=== PATIENT | female | born 1940 | race Two or more races ===

== ENCOUNTER 2016-10-05 10:33 | Day surgery (SDC) | payer MEDICARE, OTHER ==
[~2016-10-05 10:33] MED LIST: ACETAMINOPHEN TAB 500 MG TAB PO ONE; DEXAMETHASONE SOD PHOSPHATE 10 MG/ML 1 ML VIAL IV ONE; DEXAMETHASONE SOD PHOSPHATE 4 MG/ML 1 ML VIAL IV ONE; FAMOTIDINE 20 MG/2 ML VIAL IV ONE; LACTATED RINGERS 1,000 ML IV SCH; LIDOCAINE 1% 20 ML VIAL (10MG/ML) FOR IV START INTRADERMA PRN; MIDAZOLAM 2 MG/2 ML VIAL IV PRN; MORPHINE SULFATE 2 MG/ML SYRINGE IV PRN; ONDANSETRON 4 MG/2 ML VIAL IVP ONE; ceFAZolin 2 GM in SODIUM CHLORIDE 0.9% 100 ML IVPB ONE
[2016-10-05] MEDS: OXYMETAZOLINE 0.05% NASL SPRAY 15 ML NASAL ONE ×5 (10:51→11:15)
[2016-10-05] MEDS ORDERED: NEOSTIGMINE 1 MG/ML 10 ML VIAL ONE (12:47)
[2016-10-05] MEDS ORDERED: SUCCINYLCHOLINE CHLORIDE VIAL 200 MG/10 ML VIAL IV ONE (12:47)
[2016-10-05] MEDS ORDERED: DEXAMETHASONE SOD PHOS (MDV) 100 MG/10 ML VIAL ONE (12:47)
[2016-10-05] MEDS ORDERED: ePHEDrine 50 MG/ML 1 ML AMP ONE (12:47)
[2016-10-05] MEDS ORDERED: MIDAZOLAM 2 MG/2 ML VIAL ONE (12:47)
[2016-10-05] MEDS ORDERED: PROPOFOL 10 MG/ML 20 ML VIAL IV ONE (12:47)
[2016-10-05] MEDS ORDERED: GLYCOPYRROLATE 0.2 MG/ML 2 ML VIAL ONE (12:47)
[2016-10-05] MEDS ORDERED: ROCURONIUM BROMIDE 10 MG/ML 10 ML VIAL IV ONE (12:47)
[2016-10-05] MEDS ORDERED: LIDOCAINE 1% INJ 10MG/ML (20 ML MDV) ONE (12:47)
[2016-10-05] MEDS ORDERED: CIPROFLOXACIN-DEXAMETH 0.3-0.1% DROPS 7.5 ML BTL BOTH EARS ONE (13:37)
[2016-10-05] MEDS ORDERED: LIDOCAINE 1%-EPI 1:100,000 20 ML VIAL SQ ONE (13:38)
[2016-10-05] MEDS ORDERED: OXYMETAZOLINE 0.05% NASL SPRAY 15 ML MISCELLANE ONE (13:46)
[2016-10-05] MEDS ORDERED: LACTATED RINGERS 1,000 ML IV ONE (14:39)
--- NOTE | 2016-10-05 14:59 | P.OP ---
Date of Procedure: 10/05/16 Preoperative Diagnosis: Bilateral chronic otitis media with effusion Eustachian tube dysfunction 4.6 cm left wrist a lesion 6 cm left upper arm lesion Tongue lesion Dysphasia Rule out nasopharyngeal lesion Postoperative Diagnosis: Same Procedure(s) Performed: Excision of a 4.6 x 2 cm left wrist lesion with bilateral advancement flap closure with a secondary defect measuring 9.2 x 4 cm Excision of a 6 x 2 cm left upper arm lesion with bilateral advancement flap closure and a secondary flap defect reconstruction measuring 12 x 4 cm Bilateral direct microscopic tympanostomy and tube placement Endoscopic evaluation the nasopharynx with biopsy Direct microscopic laryngoscopy with biopsy of the base the tongue i.e. vallecula Excision of a 1 1/2 cm anterior tongue lesion with primary closure Anesthesia: MIRLANDE Surgeon: Hossein Connolly Estimated Blood Loss (ml): 20 Pathology: other (Nasopharynx, tongue, two left arm lesions) Condition: stable Disposition: PACU Indications for Procedure: This patient presented to the office with hearing loss to large left arm lesions that are suspicious. Breathing through the nose etc. thorough examination revealed to suspicious left arm lesions bilateral middle ear effusion with a significant conductive hearing loss patient also was found to have a suspicious lesion of the base the tongue and a course the nasopharynx. Operative Findings: Patient had bilateral middle ear effusion strange lesion of the vallecula and nasopharynx and to lesions a left arm unable to perform the bronchoscopy and esophagoscopy because of the anatomy of the patient. Description of Procedure: This patient was taken to the operative room and placed in the supine position. A general inhalation anesthetic was administered the patient by mask and subsequently intubated with a cuffed endotracheal tube by the department of anesthesia with a functioning IV line in place. Patient was monitored throughout the entire case by the department of anesthesia. This is a difficult intubation per the anesthesiologist. Both ears were visualized with a 250 mm Leica microscope and cerumen and epithelial debris was removed from the external auditory canal. Tympanostomy incisions were made inferiorly and tubes were placed and fluid was suctioned. The left ear to went on easily the right side showed massive edema the middle ear space. 2 was placed nevertheless and drops were placed. Attention was then paid to the nose where a 0 scope was placed into the right nares and the entire nasopharynx was evaluated directly. The nasopharynx showed some irregular lymphoid tissue which was biopsied. The patient tolerated this well this was done with a 0 Watts duong scope. Attention was then paid to the left arm where there were 2 lesions present one of's of the left wrist the other one is a little left upper arm. Both lesions were measured the wrist lesion measured 4.6 x 2 cm the left upper arm lesion measured 6 x 2 cm both were anesthetized marked and excised with a 15 blade delicate plastic scissors and a Brown-Adson forceps. Adjacent advancement flaps were developed an H-type incision and close the defect. We elevated the flaps and rotated the flaps into position and close the defect with the use of a 4-0 Monocryl deeply and a 5-0 Prolene in a running nonlocking fashion. The secondary defect of the wrist lesion measured 9.2 x 4 cm the secondary defect of the left upper arm lesion measured 12 x 4 cm. Both of them underwent extensive undermining and an adjacent flap was developed for closure. A bilateral advancement flap was utilized. We did remove redundant tissue to prevent dogears. [place] triangles were removed. A tooth guard was then placed and a Jako laryngoscope was placed into the patient's mouth with care to avoid any trauma to the lips teeth gums and tongue ulcers open tongue was depressed and the entire Jonathan and hypopharynx was evaluated including the piriform sinus, aryepiglottic folds, true and false cords etc. placed on suspension on a Lewy magnified and there was an unusual vallecular lesion that was biopsied with biopsy forceps. No other lesions were noted. We were unable to enter the lungs were esophagus because of the anatomy of this patient's neck. We will do this at a later date. Attention was then paid to the tongue. The tongue was grasped and brought forward marked and anesthetized with lidocaine 1% with epinephrine 1 100,000. A V-type incision was performed of the anterior tip to remove this unusual anterior tip lesion. Hemostasis was obtained with use of electrocoagulation and we closed this lesion with use of a 4 rapid Vicryl in a running nonlocking fashion. Excellent approximation was obtained the patient tolerated this well and follow-up will be in the office in 1 week for recheck and the patient is to contact me if any problems should arise in the interim.
[2016-10-05] MEDS ORDERED: KETOROLAC 30 MG/ML 1 ML VIAL IVP ONE (16:08)
[2016-10-05] MEDS ORDERED: ACETAMINOPHEN TAB 325 MG TAB PO ONE (16:42)
== END 2016-10-05 15:45 | disposition home or self-care (01) ==
LOC: OR 10:33
PROVIDERS: ATTEND Otolaryngology
DX: C44.629 Squamous cell carcinoma of skin of left upper limb, including shoulder (principal); L57.8 Other skin changes due to chronic exposure to nonionizing radiation; K14.0 Glossitis; K13.29 Other disturbances of oral epithelium, including tongue; K13.5 Oral submucous fibrosis; L85.8 Other specified epidermal thickening; H65.493 Other chronic nonsuppurative otitis media, bilateral; H90.2 Conductive hearing loss, unspecified; H69.80 Other specified disorders of Eustachian tube, unspecified ear; I10 Essential (primary) hypertension; E07.9 Disorder of thyroid, unspecified; K21.9 Gastro-esophageal reflux disease without esophagitis; Z79.899 Other long term (current) drug therapy; Z88.6 Allergy status to analgesic agent; Z88.1 Allergy status to other antibiotic agents; Z88.5 Allergy status to narcotic agent; Z91.013 Allergy to seafood; Z88.7 Allergy status to serum and vaccine; Z88.8 Allergy status to other drugs, medicaments and biological substances; Z91.09 Other allergy status, other than to drugs and biological substances
CPT/HCPCS: 93005; 88305; 84132; 88312; 88342; 88341; 14301 ×2; 69436; 31535; 41599; J2250; J0330; J1100 ×2; J2710; J0690; J2405; J2001; J1885; J2704; 88364; 88365

== ENCOUNTER 2017-02-08 10:14 | Day surgery (SDC) | payer MEDICARE, OTHER ==
[2017-01-29 15:14] VITALS: BMI 30.6
[~2017-02-08 10:14] MED LIST changes: -ACETAMINOPHEN TAB 500 MG TAB PO ONE; +HYDROmorphone 1 MG/ML 1 ML SYRINGE IVP PRN; -MORPHINE SULFATE 2 MG/ML SYRINGE IV PRN; +OXYMETAZOLINE 0.05% NASL SPRAY 1 SPRAY BOTTLE NASAL ONE; +SCOPOLAMINE 1.5MG/72HR PATCH TRANSDERM ONE
[2017-02-08 14:23] LABS: Potassium 3.8 mmol/L (3.5-5.1)
[2017-02-08] MEDS ORDERED: LIDOCAINE 1% INJ 10MG/ML (20 ML MDV) ONE (14:52)
[2017-02-08] MEDS ORDERED: SUCCINYLCHOLINE CHLORIDE 100 MG/5 ML SYR IV ONE (14:52)
[2017-02-08] MEDS ORDERED: MIDAZOLAM 2 MG/2 ML VIAL ONE (14:52)
[2017-02-08] MEDS ORDERED: PROPOFOL 10 MG/ML 20 ML VIAL IV ONE (14:52)
[2017-02-08] MEDS ORDERED: fentaNYL (PF) 50 MCG/ML 2 ML AMP ONE (14:52)
[2017-02-08] MEDS ORDERED: ePHEDrine SULFATE/0.9% NACL/PF 50 MG/5 ML SYRINGE IV ONE (14:52)
[2017-02-08] MEDS ORDERED: CIPROFLOXACIN-DEXAMETH 0.3-0.1% DROPS 7.5 ML BTL BOTH EARS ONE (15:14)
[2017-02-08] MEDS ORDERED: BUPIVACAINE-EPI 0.5%-1:200,000 10 ML VIAL SQ ONE (15:15)
[2017-02-08] MEDS ORDERED: LIDOCAINE 2%-EPI 1:100,000 20 ML VIAL SQ ONE (15:16)
[2017-02-08] MEDS ORDERED: FLUORESCEIN STRIPS 1 MG STRIP MISCELLANE ONE (15:16)
[2017-02-08] MEDS ORDERED: EPINEPHrine 1 MG/ML (MDV) 30 ML VIAL IRRIGATION ONE (15:17)
--- NOTE | 2017-02-08 16:05 | P.OP ---
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 Chronic otitis media with effusion Eustachian tube dysfunction Hypertrophy of inferior turbinates Retained nonfunctioning tympanostomy tubes Postoperative Diagnosis: Same plus bilateral tympanic membranes perforations after old tube removal that were nonfunctioning Procedure(s) Performed: Bilateral direct microscopic tympanostomy and tube placement Bilateral direct tympanostomy and removal of nonfunctioning tubes Bilateral myringoplasty Endoscopic balloon eustachian tuboplasty Bilateral submucosal resection of the posterior inferior turbinate Implants: Anesthesia: GETA Surgeon: Hossein Connolly Estimated Blood Loss (ml): 5 Pathology: none sent Condition: stable Disposition: PACU Indications for Procedure: This patient has had chronic ear infections including chronic mastoiditis. In spite of our best efforts the infection has persisted and her tubes have become nonfunctioning. She's developed a middle ear effusion loss of hearing and would like to proceed forward with repeat tube placement along with removal of the old tubes and patching the tympanic membranes and this time we will be proceeding forward with a bilateral balloon eustachian tuboplasty. All risks, benefits, and alternative therapies were discussed in detail. Consent was obtained and all questions were answered. Operative Findings: Patient had a retracted tympanic membrane's bilaterally with retained nonfunctioning tubes. Middle ear effusion was seen after new tubes were placed and the old tubes were removed. We did patch the tympanic membranes perforations bilaterally after tube removal and eustachian tube orifices were very tight and they were ballooned open. Description of Procedure: This patient was taken to the operative room and placed in the supine position. A general inhalation anesthetic was administered to the patient by mask and subsequently intubated with a cuffed endotracheal tube by the department of anesthesia with a functioning IV line in place. The patient was monitored throughout the entire case by the department of anesthesia. Both ureters were visualized with a 250 mm Leica microscope and cerumen and epithelial debris was removed. Bilateral tympanostomies were performed under microscopic visualization surrounding the old tube in the old tubes were removed. We suction the fluid from the middle ear and then did a middle ear lavage. After the middle ear lavage was performed the edge of the perforation was prepped and a bio design graft was placed and a bilateral myringoplasty was performed. After the lavage was performed bilaterally and the myringoplasty was performed bilaterally after removal of nonfunctioning tubes, a tympanostomy incision was made more anteriorly and a ultraseal tube was placed on the right and a triune tube was placed on the left. Excellent results were obtained. Attention was then paid to the nose where the inferior turbinates were found to be compressing on the eustachian tube anteriorly. We injected this area with lidocaine 1% with epinephrine 1 100,000 and a 2 mm microdebrider was inserted into the inferior turbinate and a submucosal resection was performed posteriorly. After this was performed we then identified the eustachian tube by endoscopic visualization. An occluder balloon was placed into the eustachian tube orifices bilaterally and cannulated the eustachian tube. It was insufflated to a #10 for appropriate amount of time. The balloon was removed the area was reinspected the patient tolerated this well follow-up will be in the office in 1 week and the patient is to contact me if any problems should arise.
[2017-02-08 16:20] VITALS: RESP 16; TEMP 97
[2017-02-08] MEDS ORDERED: KETOROLAC 30 MG/ML 1 ML VIAL IVP ONE (16:34)
[2017-02-08 17:04] VITALS: BP 118/60; PULSE 75
== END 2017-02-08 17:50 | disposition home or self-care (01) ==
LOC: OR 10:14
PROVIDERS: ATTEND Otolaryngology
DX: H70.13 Chronic mastoiditis, bilateral (principal); H90.6 Mixed conductive and sensorineural hearing loss, bilateral; J34.3 Hypertrophy of nasal turbinates; H69.90 Unspecified Eustachian tube disorder, unspecified ear; T85.618A Breakdown (mechanical) of other specified internal prosthetic devices, implants and grafts, initial encounter; Y72.3 Surgical instruments, materials and otorhinolaryngological devices (including sutures) associated with adverse incidents; I10 Essential (primary) hypertension; G47.33 Obstructive sleep apnea (adult) (pediatric); K21.9 Gastro-esophageal reflux disease without esophagitis; E07.9 Disorder of thyroid, unspecified; Z99.89 Dependence on other enabling machines and devices; Z88.1 Allergy status to other antibiotic agents; Z88.5 Allergy status to narcotic agent; Z88.2 Allergy status to sulfonamides; Z79.899 Other long term (current) drug therapy
CPT/HCPCS: 80051; 69436; 30140; 69949; C1763; J0171; J2250; J0690; J2001; J3010; J1885; J0330; J2704